=== PATIENT | female | born 1965 | race Two or more races ===

== ENCOUNTER 2025-08-23 13:02 | Outpatient (RCR) | payer MEDICARE, MEDICAID, SELFPAY ==
--- NOTE | 2025-08-23 14:15 | PTNOTE_ITS ---
PT OP Initial Eval Patient Information Outpatient Physical Therapy Treatment Date: 08/23/25 Visit Reasons: Parkinsons Medical Diagnosis: Parkinson Treatment Dx #1: Gait Difficulty Start of Care: 08/23/25 Date of Onset: 2019 Smoking Status Smoking Status: Never smoker Initial Assessment Subjective: Pt is a 59 y/o female reports of increase tremors and shuffle gait at night. Pt mentioned she can perform all functional ADLs, ambulate, drive, and recreational activities without much limitation. Pt has an appt with neurologist in [facility] and has been on parkinson medication which is helping the overall symptoms. At this time Pt does not feel that she needs physical therapy. Objective: BLE AROM: all motions are WNL BLE MMTs: grossly 4/5 Sit-Stand Test: 11 reps Gait Observation: normal Assessment: Pt demonstrate normal BLE strength and ROM leading to minimal to no limitation with overall ADLs, ambulation, and recreational activities. At this time Pt will not benefit from skilled physical therapy due to mild symptoms reported as well as demonstrate good functional strength, mobility, and overall endurance. Pt was evaluated and d/c from care; thank you for your referrals. [employer] Goals 1) Eval and D/C 2) Follow up with MD LAWRENCE Treatment Plan Frequency and Duration: 1x Certification Dates: 08/23/25 to 11/21/25 Procedure Charges OP PT Eval Mod Complex 30 minutes: Yes
== END 2025-08-25 23:59 | disposition home or self-care (01) ==
LOC: CPTX 13:02
PROVIDERS: PCP Physician Assistant; Referring Provider Physician Assistant; Visit Provider Physician Assistant
DX: R26.9 Unspecified abnormalities of gait and mobility (principal); G20.A1 Parkinson's disease without dyskinesia, without mention of fluctuations
CPT/HCPCS: 97162